=== PATIENT | male | born 1965 | race Caucasian/White ===

== ENCOUNTER 2025-05-15 20:10 | Emergency (ER) | payer OTHER ==
[~2025-05-15] VITALS: Ht 172.7 cm; Wt 74.8 kg
[2025-05-15 20:10] VITALS: BP 153/101
[2025-05-15] MEDS ORDERED: ONDANSETRON ODT 4 MG TAB.RAPDIS ONE (20:36)
[2025-05-15] MEDS: HYDROCODONE/APAP 10-325 MG TABLET PO ONE (20:37)
[2025-05-15] MEDS ORDERED: HYDROCODONE/APAP 10-325 MG TABLET ONE (20:37)
[2025-05-15] MEDS: ONDANSETRON ODT 4 MG TAB.RAPDIS SL ONE (20:38)
[2025-05-15] MEDS ORDERED: ONDA4TAB11 PO (20:50)
[2025-05-15] MEDS ORDERED: HYDR-3980 PO (20:50)
[2025-05-15] MEDS ORDERED: TAMS-3 PO (20:56)
[2025-05-15 22:09] LABS: *BILIRUBIN,URIN NEGATIVE (NEGATIVE); *BLOOD, URINE 2+ (NEGATIVE); *COLOR,URINE YELLOW (YELLOW); *KETONES,URINE NEGATIVE (NEGATIVE); *PROTEIN,URINE 2+ (NEGATIVE); *UROBILINOGEN,URINE 0.2 E.U./dl (NORMAL); LEUKOCYTE ESTERASE ,URINE 1+ (NEGATIVE); NITRITE, URINE NEGATIVE (NEGATIVE); UGLUCOSE NEGATIVE (NEGATIVE)
[2025-05-15 22:12] LABS: *CLARITY,URINE SLIGHTLY CLOUDY (CLEAR)
[2025-05-15 22:22] LABS: SQUAMOUS EPITHELIAL CELL,UR FEW /HPF (NONE SEEN)
[2025-05-15 22:23] LABS: CALCIUM OXALATE CRYSTALS,UR FEW /HPF (NONE SEEN)
[2025-05-15 22:57] VITALS: BP 149/98; TEMP 98; O2SAT 98
== END 2025-05-15 22:58 | disposition home or self-care (01) ==
LOC: ER 20:10
DX: G89.29 Other chronic pain (principal); R10.2 Pelvic and perineal pain
CPT/HCPCS: 87086; A4606; A4663; Q0162